=== PATIENT | female | born 1975 | race Caucasian/White ===

== ENCOUNTER 2022-11-26 10:45 | Emergency (ER) | payer MEDICAID ==
[~2022-11-26] VITALS: Ht 170.2 cm; Wt 63.6 kg
[2022-11-26 11:18] LABS: EOSINOPHILS % (AUTO) 0.5 % (0-6); HEMOGLOBIN 8.1 g/dl (12.0-16.0); LYMPHOCYTES % (AUTO) 46.2 % (21-51); MEAN CORPUSCULAR HEMOGLOBIN 24.4 PG (27.0-31.0); MEAN CORPUSCULAR HGB CONC 32.4 g/dL (33.0-36.5); MEAN CORPUSCULAR VOLUME 75.2 FL (78-98); MONOCYTES # (AUTO) 0.4 X10'3 (0-0.9); MONOCYTES % (AUTO) 8.2 % (2-12); NEUTROPHILS % (AUTO) 44.1 % (42-75); PLATELET COUNT 364 X10'3 (140-440); RED BLOOD COUNT 3.32 X10'6 (4.20-5.60); RED CELL DISTRIBUTION WIDTH 18.3 % (11.5-14.5); WHITE BLOOD COUNT 4.4 X10'3 (4.5-11.0)
[2022-11-26 11:22] LABS: ALANINE AMINOTRANSFERASE 51 U/L (12-78); ALBUMIN 4.1 G/DL (3.4-5.0); ALKALINE PHOSPHATASE 58 IU/L (46-116); ANION GAP 11 (8-16); ASPARTATE AMINO TRANSFERASE 93 U/L (10-37); BILIRUBIN,TOTAL 0.4 MG/DL (0.1-1.0); BLOOD UREA NITROGEN 16 MG/DL (7-18); BUN/CREATININE RATIO 13.1 (6.6-38.0); CALCIUM 9.7 MG/DL (8.5-10.1); CHLORIDE 95 MMOL/L (99-107); CREATININE 1.22 MG/DL (0.40-0.90); ETHANOL < 0.010 GM/DL (0.0-0.010); GLUCOSE 109 MG/DL (70-104); POTASSIUM 3.5 MMOL/L (3.5-5.1); SODIUM 133 MMOL/L (135-145); TOTAL CARBON DIOXIDE 26.7 MMOL/L (24-32); TOTAL PROTEIN 8.3 G/DL (6.4-8.2); eGFR 47 ML/MIN
[2022-11-26 11:23] LABS: ACETAMINOPHEN < 2.0 UG/ML (10-30)
--- NOTE | 2022-11-26 11:24 | NUR ---
Met with patient in regards to substance use. Patient would like to start medication to help her with cravings and withdrawls. I gave patient a card for [facility] and my card to call me with any questions.
[2022-11-26 11:32] LABS: URINE AMPHETAMINE SCREEN POSITIVE (Neg); URINE BARBITUATE SCREEN NEGATIVE (Neg); URINE BENZODIAZEPINES SCREEN NEGATIVE (Neg); URINE CANNABINOID SCREEN NEGATIVE (Neg); URINE COCAINE SCREEN NEGATIVE (Neg); URINE METHADONE SCREEN NEGATIVE (Neg); URINE OPIATE SCREEN NEGATIVE (Neg); URINE PHENCYCLIDINE SCREEN NEGATIVE (Neg)
[2022-11-26] MEDS ORDERED: LORazepam 2 mg/ml vial IV ONE (11:55)
[2022-11-26] MEDS ORDERED: NALO4SPR BOTHNARES (14:06)
[2022-11-26] MEDS ORDERED: BUPR1FIL3 SL (14:22)
[2022-11-26 14:47] VITALS: BP 119/77
== END 2022-11-26 14:49 | disposition home or self-care (01) ==
LOC: ER 10:46
DX: T40.411A Poisoning by fentanyl or fentanyl analogs, accidental (unintentional), initial encounter (principal); Z56.0 Unemployment, unspecified; Z60.2 Problems related to living alone; F11.90 Opioid use, unspecified, uncomplicated; Z90.89 Acquired absence of other organs; Z88.0 Allergy status to penicillin; Z88.2 Allergy status to sulfonamides; Z79.899 Other long term (current) drug therapy; Y92.89 Other specified places as the place of occurrence of the external cause
CPT/HCPCS: 36415; 71045; 80053; 80305; 80320; 80329; 85025; 93005; 96374; 99285; J2060; A4353

== ENCOUNTER 2024-01-18 22:16 | Emergency (ER) | payer MEDICAID ==
[~2024-01-18] VITALS: Ht 170.2 cm; Wt 72.0 kg
[~2024-01-18 22:16] MED LIST: NALO4SPR BOTHNARES
[2024-01-18 22:26] VITALS: BP 151/84; PULSE 73; RESP 16; TEMP 98.2; O2SAT 99
== END 2024-01-19 03:04 | disposition home or self-care (01) ==
LOC: ER 22:17
DX: F19.10 Other psychoactive substance abuse, uncomplicated (principal); Z88.0 Allergy status to penicillin; Z88.2 Allergy status to sulfonamides; Z79.899 Other long term (current) drug therapy
CPT/HCPCS: 99281